=== PATIENT | female | born 1945 | race Caucasian/White ===

== ENCOUNTER 2021-10-29 00:45 | Emergency (ER) | payer MEDICARE, BC ==
[~2021-10-29] VITALS: Ht 154.9 cm; Wt 56.2 kg
--- NOTE | 2021-10-29 00:55 | NUR ---
Dr. Valdivia at bedside for MSE.
[2021-10-29] MEDS ORDERED: HYDROMORPHONE 1 MG/1 ML DISP.SYRIN IV ONE (01:15)
[2021-10-29] MEDS ORDERED: KETOROLAC TROMETHAMINE 15 MG INJ IVP ONE (01:15)
[2021-10-29] MEDS ORDERED: ONDANSETRON 4 MG/2 ML VIAL IV ONE (01:15)
[2021-10-29] MEDS ORDERED: KETOROLAC TROMETHAMINE 15 MG INJ ONE (01:30)
[2021-10-29] MEDS ORDERED: HYDROMORPHONE 1 MG/1 ML DISP.SYRIN ONE (01:30)
[2021-10-29] MEDS ORDERED: ONDANSETRON 4 MG/2 ML VIAL ONE (01:30)
[2021-10-29 01:37] LABS: HEMATOCRIT 36.7 % (31.2-41.9); MEAN CORPUSCULAR HEMOGLOBIN 28.6 uug (24.7-32.8); MEAN CORPUSCULAR VOLUME 88.7 fL (75.5-95.3); PLATELET COUNT (AUTO) 224 K/uL (179-408)
[2021-10-29 01:48] LABS: CARBON DIOXIDE 29 mmol/L (21-32); CHLORIDE 104 mmol/L (98-107); CREATININE 0.7 mg/dL (0.6-1.3); GLUCOSE 99 mg/dL (74-106); POTASSIUM 3.8 mmol/L (3.5-5.1); UREA NITROGEN, BLOOD 14 mg/dL (7-18)
[2021-10-29 01:51] LABS: MAGNESIUM 2.3 mg/dL (1.8-2.4)
[2021-10-29] MEDS ORDERED: OXYC-128 PO (02:38)
[2021-10-29] MEDS ORDERED: PRAV10TA40 PO (03:08)
[2021-10-29] MEDS ORDERED: BUPR-96 PO (03:08)
[2021-10-29] MEDS ORDERED: MONT10TA33 PO (03:08)
[2021-10-29] MEDS ORDERED: SOLI10TA2 PO (03:08)
[2021-10-29] MEDS ORDERED: OXYCODONE/APAP 5-325 MG TABLET ONE (04:21)
[2021-10-29] MEDS ORDERED: OXYCODONE/APAP 5-325 MG TABLET PO ONE (04:30)
--- NOTE | 2021-10-29 04:49 | NUR ---
Patient discharged to home in stable condition. Written and verbal after care instructions given. Patient verbalizes understanding of instructions. Stressed follow up or return to ER for worsening s/s. Patient out of ER via wheelchair, no acute signs of distress, VSS, all belongings taken, IV site discontinued, provided with copies of lab and imaging results, assisted patient in transfer from chair to car, no falls noted, to be driven home by family via private vehicle.
[2021-10-29 04:50] VITALS: BP 113/76
== END 2021-10-29 04:50 | disposition home or self-care (01) ==
LOC: ER 00:50
DX: S32.591A Other specified fracture of right pubis, initial encounter for closed fracture (principal); W01.0XXA Fall on same level from slipping, tripping and stumbling without subsequent striking against object, initial encounter; Y93.89 Activity, other specified; Y92.019 Unspecified place in single-family (private) house as the place of occurrence of the external cause; E78.5 Hyperlipidemia, unspecified; J45.909 Unspecified asthma, uncomplicated; F32.A Depression, unspecified
CPT/HCPCS: 99285; 96374; 72192; 96375; 80048; 83735; 85025; 36415; 72190; 73020; J1885; J2405; J1170; A4663